=== PATIENT | male | born 1995 | race Hispanic/Latino ===

== ENCOUNTER 2018-05-30 18:40 | Inpatient (IN) | payer MEDICAID ==
[2018-05-30 19:23] VITALS: O2SAT 98
[2018-05-30 19:58] LABS: BASO # 0.1 K/uL (0.0-0.2); EOS # 0.3 K/uL (0.0-0.7); EOS % 2.8 % (0.0-4.0); HEMOGLOBIN 14.7 g/dL (12.0-18.0); LYMPH # 3.6 K/uL (1.0-4.3); LYMPH % 35.7 % (20.0-40.0); MEAN CELL VOLUME 85.7 fL (80.0-94.0); MEAN CORPUSCULAR HEMOGLOBIN 30.9 pg (27.0-31.0); MEAN CORPUSCULAR HGB CONC 36.1 g/dL (33.0-37.0); MEAN PLATELET VOLUME 7.8 fL (7.2-11.7); MONO # 0.9 K/uL (0.0-0.8); MONO % 8.8 % (0.0-10.0); NEUT # 5.3 K/uL (1.8-7.0); NEUT % 51.7 % (50.0-75.0); NRBC % 0.1 % (0.0-2.0); RBC 4.76 Mil/uL (4.40-5.90); RED CELL DISTRIBUTION WIDTH 13.1 % (11.5-14.5); WHITE BLOOD COUNT 10.2 K/uL (4.8-10.8)
[2018-05-30 20:04] LABS: URINE BILIRUBIN NEGATIVE (NEGATIVE); URINE BLOOD NEGATIVE (NEGATIVE); URINE CLARITY Clear (Clear); URINE COLOR Yellow (YELLOW); URINE GLUCOSE (UA) NORMAL (Normal); URINE LEUKOCYTE ESTERASE NEG Leu/uL (Negative); URINE PROTEIN NEGATIVE (NEGATIVE); URINE UROBILINOGEN NORMAL mg/dL (0.2-1.0)
--- NOTE | 2018-05-30 20:15 | C.PDOC ---
History Of Present Illness 23 year old male with PMHx of bipolar disorder and asthma presents to the ED requesting help because he tried to jump out of car today. Reports he is going through a lot with work and his girlfriend. Also states he tried to overdose with heroin to kill himself last week and was revived with Narcan. Denies any physical complaints. Denies HI. Time Seen by Provider: 05/30/18 19:25 Chief Complaint (Nursing): Psychiatric Evaluation History Per: Patient History/Exam Limitations: no limitations Onset/Duration Of Symptoms: Days Current Symptoms Are (Timing): Still Present Suicide/Self Injury Attempted (Context): Other (heroin injection) Modifying Factor(s): Narcotics (heroin) Associated Symptoms: Depression, Suicidal Thoughts, Suicidal Plan Past Medical History Reviewed: Historical Data, Nursing Documentation, Vital Signs Vital Signs: Last Vital Signs Temp 97.8 F 05/30/18 19:15 Pulse 77 05/30/18 19:15 Resp 20 05/30/18 19:15 BP 112/69 05/30/18 19:15 Pulse Ox 98 05/30/18 19:15 - Medical History PMH: Asthma, Bipolar Disorder Family History: States: No Known Family Hx - Social History Hx Alcohol Use: Yes Hx Substance Use: Yes (heroin) Review Of Systems Except As Marked, All Systems Reviewed And Found Negative. Psych: Positive for: Depression, Suicidal ideation Physical Exam - Physical Exam Additional Physical Exam Comments: Gen: VS reviewed, alert, well developed, well nourished, nontoxic, mild distress Eye: EOMI, PERRL Neck: no JVD, supple, no adenopathy CV: regular rate, regular rhythm, no rubs,no murmur, S1, S2 Pulm: no distress, clear to auscultation, no wheeze, no rhonchi, breath sounds equal, no rales Abd: soft, nontender, no guarding, no rebound, no rigidity Ext: no edema Skin: good color, no rash, no cyanosis Psych: responds appropriately to questions, normal affect Neuro: oriented x3, CN2-12 intact grossly, motor intact, sensation intact ED Course And Treatment - Laboratory Results Result Diagrams: 05/30/18 19:50 05/30/18 19:50 O2 Sat by Pulse Oximetry: 98 (RA) Pulse Ox Interpretation: Normal Medical Decision Making Medical Decision Making: patient accepted for admission for suicidal ideation, bipolar disorder, substance abuse to service of dr. elliott. Disposition - Disposition Disposition: HOSPITALIZED Disposition Time: 22:14 Condition: STABLE Forms: [facility] (Albanian) - Clinical Impression Clinical Impression: Bipolar disorder, Suicidal ideation, Substance abuse - Scribe Statement The provider has reviewed the documentation as recorded by the Scribe Carol Ramos All medical record entries made by the Scribe were at my direction and personally dictated by me. I have reviewed the chart and agree that the record accurately reflects my personal performance of the history, physical exam, medical decision making, and the department course for this patient. I have also personally directed, reviewed, and agree with the discharge instructions and disposition.
[2018-05-30 20:21] LABS: ALB/GLOB RATIO 1.5 (1.0-2.1); ALBUMIN 4.9 g/dL (3.5-5.0); ALT/SGPT 17 U/L (21-72); AST/SGOT 16 U/L (17-59); BLOOD UREA NITROGEN 12 mg/dL (9-20); GFR NON-AFRICAN AMERICAN > 60
[2018-05-30 20:21] LABS: BARBITURATES, UR NEGATIVE (NEGATIVE); BENZODIAZEPINES, UR NEGATIVE (NEGATIVE); PHENCYCLIDINE, UR NEGATIVE (NEGATIVE)
[2018-05-30 20:24] LABS: OPIATES, UR POSITIVE (NEGATIVE)
[2018-05-30] MEDS ORDERED: Potassium Chloride 20 mEq ER Tab PO STA (20:36)
[2018-05-30] MEDS ORDERED: Potassium Chloride 20 mEq/15 ml LIQ UD ONE (21:00)
[2018-05-30 21:02] LABS: ACETAMINOPHEN < 10.0 ug/mL (10.0-30.0); SALICYLATE < 1.0 mg/dL 1
[2018-05-30 21:10] LABS: BARBITURATES, UR NEGATIVE (NEGATIVE); BENZODIAZEPINES, UR NEGATIVE (NEGATIVE); PHENCYCLIDINE, UR NEGATIVE (NEGATIVE)
[2018-05-30 21:21] LABS: OPIATES, UR POSITIVE (NEGATIVE)
--- NOTE | 2018-05-30 23:54 | PCM.BM ---
<Juliano Hu - Last Filed: 05/30/18 23:51> Treatment Plan Problems - Problems identified on initial assessmt SUICIDAL IDEATION Date Initiated: 05/30/18 Time Initiated: 23:00 Assessment reference: NA Status: Active SUBSTANCE ABUSE Date Initiated: 05/30/18 Time Initiated: 23:00 Assessment reference: NA Status: Active Treatment assets and liabiliti Patient Assests: cooperative, self-reliant, ADL independent, negotiates basic needs Patient Liabilities: financial problems, substance abuse, medical problems - Milieu Protocol Maintain good personal hygiene: daily Encourage regular showers, daily Remind patient to perform daily oral care, daily Assist patient to perform ADL's Maintain personal safety: every shift Educate patient to report safety concerns to staff, every shift Monitor environment for contraband/sharps Medication safety: Monitor for expected outcome, potential side effects: every shift, Assess barriers to learning: every shift, Assess readiness for medication education: every shift <Morgan Pacheco - Last Filed: 05/31/18 13:29> - Diagnosis (1) Opioid use disorder, severe, dependence Status: Acute Interventions: 05/31/18 13:29 * Assess 7x/week regarding severity of withdrawal * Educate regarding risks, benefits, side effects and alternatives of medications * Use Motivational Interviewing for abstinence * Use CBT for relapse prevention * Medication management for withdrawal symptoms * Encourage medication assisted treatment * (2) Bipolar disorder Status: Acute Interventions: 05/31/18 13:29 * Assess/adjust medications daily and /or as needed * See patient on an individual basis 7x/week to assess level of manic behaviors and stability * Discuss risks, benefits, side effects and alternatives of medications * <Betzaida Coombs - Last Filed: 06/04/18 08:52> Family Contact Family involvement: Family/SO is involved Family contact: Patient declines to allow family contact at present - Goals for Treatment Patient goals for treatment: "I want to go to rehab at [facility]." Discharge/Continuing Care - Education Needs Education Needs: Patient Medication, Patient Coping Skills, Patient Placement options, Patient Community resources - Discharge Discharge Criteria: Tolerates medication w/o severe side effects, No longer exhibiting s/s of withdrawal Discharge to:: Substance Abuse Rehab - Treatment Team Participation Discussed with Family/SO: No Was Patient/Family/SO present at Treatment Team Meeting: Yes
--- NOTE | 2018-05-31 09:33 | RAD ---
Date of service: 05/30/2018 HISTORY: Medical screening COMPARISON: No prior. FINDINGS: LUNGS: No active pulmonary disease. PLEURA: No significant pleural effusion identified, no pneumothorax apparent. CARDIOVASCULAR: No aortic atherosclerotic calcification present. Normal cardiac size. No pulmonary vascular congestion. OSSEOUS STRUCTURES: No significant abnormalities. VISUALIZED UPPER ABDOMEN: Normal. OTHER FINDINGS: None. IMPRESSION: No active disease.
[2018-05-31] MEDS ORDERED: Aluminum Hydroxide/Magnesium Hydroxide Susp (30 mL) PO PRN (10:38)
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
[2018-05-31] MEDS: Divalproex 500 mg DR Tab PO SCH ×2 (11:26→17:07)
[2018-05-31] MEDS: Multiple Vitamins Tab PO SCH (11:28)
[2018-06-01] MEDS: Divalproex 500 mg DR Tab PO SCH ×2 (09:10→18:07)
[2018-06-01] MEDS: Multiple Vitamins Tab PO SCH (09:10)
[2018-06-01] MEDS ORDERED: Influenza Vaccine 60 MCG/0.5 ML SYR (3 yr & up) IM ONE (10:00)
[2018-06-01] MEDS ORDERED: Pneumococcal 23-Valent Vaccine IM ONE (10:30)
--- NOTE | 2018-06-01 12:10 | PCM.PYCHPN ---
Psychiatric Progress Note - Psychiatric Progress Note Patient seen today, length of contact: 15 min Patient Chief Complaint: "I am not well" Problems Identified/Issues Discussed: The pt is seen, chart reviewed, case discussed with staff. The pt is compliant with medications and reports no side-effects. Symptoms are improving but needs more time to stabilize. Pt attends groups and activities. Support given, psycho-education provided. After care discussed. Medication Change: Yes (meds adjusted) Medical Record Reviewed: Yes Mental Status Examination - Cognitive Function Orientation: Person, Place, Situation, Time Memory: Intact Attention: WNL Concentration: Poor Association: WNL Fund of Knowledge: WNL - Mood Mood: Depressed, Anxious - Affect Affect: Constricted - Speech Speech: Appropriate - Formal Thought Process Formal Thought Process: No Impairment - Suicidal Ideation Suicidal Ideation: No - Homicidal Ideation Homicidal Ideation: No Goal/Treatment Plan - Goal/Treatment Plan Need for Continued Stay: Discharge may exacerbated symptoms, Severe functional impairment Progress Toward Problem(s) and Goals/Treatment Plan: Depakote for bipolar disorder Remeron for depression and insomnia Taper with methadone Gabapentin for augmentation As needed medications All risks, benefits and alternatives of the meds discussed, and the pt agreed and understood. Attend groups and activities Supportive therapy and psychoeducation [place] for abstinence CBT for relapse prevention Encourage MAT Refer to rehab or IOP, and self-help groups Teach healthy lifestyle methods, i.e. diet, exercise, meditation Smoking cessation with [place] Nicotine patch if needed
[2018-06-02] MEDS: Divalproex 500 mg DR Tab PO SCH ×2 (09:50→17:01)
[2018-06-02] MEDS: Multiple Vitamins Tab PO SCH (09:50)
--- NOTE | 2018-06-02 13:18 | PCM.PYCHPN ---
Psychiatric Progress Note - Psychiatric Progress Note Patient seen today, length of contact: 15 min Patient Chief Complaint: "I am getting better" Problems Identified/Issues Discussed: The pt is seen, chart reviewed, case discussed with staff. The pt is compliant with medications and reports no side-effects. Symptoms are improving but needs more time to stabilize. Pt attends groups and activities. Support given, psycho-education provided. After care discussed. Medication Change: Yes (meds adjusted) Medical Record Reviewed: Yes Mental Status Examination - Cognitive Function Orientation: Person, Place, Situation, Time Memory: Intact Attention: WNL Concentration: Poor Association: WNL Fund of Knowledge: WNL - Mood Mood: Depressed, Anxious - Affect Affect: Constricted - Speech Speech: Appropriate - Formal Thought Process Formal Thought Process: No Impairment - Suicidal Ideation Suicidal Ideation: No - Homicidal Ideation Homicidal Ideation: No Goal/Treatment Plan - Goal/Treatment Plan Need for Continued Stay: Discharge may exacerbated symptoms, Severe functional impairment Progress Toward Problem(s) and Goals/Treatment Plan: Depakote for bipolar disorder Remeron for depression and insomnia Taper with methadone Gabapentin for augmentation As needed medications All risks, benefits and alternatives of the meds discussed, and the pt agreed and understood. Attend groups and activities Supportive therapy and psychoeducation [place] for abstinence CBT for relapse prevention Encourage MAT Refer to rehab or IOP, and self-help groups Teach healthy lifestyle methods, i.e. diet, exercise, meditation Smoking cessation with [place] Nicotine patch if needed
[2018-06-03] MEDS: Divalproex 500 mg DR Tab PO SCH ×2 (10:27→17:25)
[2018-06-03] MEDS: Multiple Vitamins Tab PO SCH (10:27)
[2018-06-04 06:42] VITALS: RESP 18; TEMP 97.4
[2018-06-04] MEDS: Divalproex 500 mg DR Tab PO SCH (09:43)
[2018-06-04] MEDS: Multiple Vitamins Tab PO SCH (09:43)
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
[2018-06-04 11:46] VITALS: BP 112/63; PULSE 90
== END 2018-06-04 10:55 | disposition home or self-care (01) | DRG 430 ==
LOC: C.ER 18:40 → C.5E 22:15
PROVIDERS: ADMIT Psychiatry & Neurology Psychiatry; ATTEND Psychiatry & Neurology Psychiatry
PROC: GZ3ZZZZ Medication Management (ICD-10-PCS; principal; 2018-05-30)
PROC: GZHZZZZ Group Psychotherapy (ICD-10-PCS; 2018-05-30)
PROC: GZ56ZZZ Individual Psychotherapy, Supportive (ICD-10-PCS; 2018-05-30)
DX: F31.4 Bipolar disorder, current episode depressed, severe, without psychotic features (principal); F11.23 Opioid dependence with withdrawal; F10.20 Alcohol dependence, uncomplicated; R45.851 Suicidal ideations; G47.00 Insomnia, unspecified; Z62.810 Personal history of physical and sexual abuse in childhood; J45.909 Unspecified asthma, uncomplicated; F17.210 Nicotine dependence, cigarettes, uncomplicated; Z81.8 Family history of other mental and behavioral disorders; Z91.14 Patient's other noncompliance with medication regimen

== ENCOUNTER 2018-06-04 21:02 | Emergency (ER) | payer MEDICAID ==
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
[2018-06-04 22:12] LABS: BASO # 0.1 K/uL (0.0-0.2); BASO % 0.5 % (0.0-2.0); EOS # 0.2 K/uL (0.0-0.7); EOS % 1.1 % (0.0-4.0); HEMOGLOBIN 13.9 g/dL (12.0-18.0); LYMPH # 2.8 K/uL (1.0-4.3); LYMPH % 18.2 % (20.0-40.0); MEAN CELL VOLUME 87.6 fL (80.0-94.0); MEAN CORPUSCULAR HEMOGLOBIN 30.2 pg (27.0-31.0); MEAN CORPUSCULAR HGB CONC 34.4 g/dL (33.0-37.0); MEAN PLATELET VOLUME 7.6 fL (7.2-11.7); MONO # 1.4 K/uL (0.0-0.8); MONO % 8.9 % (0.0-10.0); NEUT # 11.1 K/uL (1.8-7.0); NEUT % 71.3 % (50.0-75.0); RBC 4.6 Mil/uL (4.40-5.90); RED CELL DISTRIBUTION WIDTH 13.2 % (11.5-14.5)
[2018-06-04 22:13] LABS: WHITE BLOOD COUNT 15.5 K/uL (4.8-10.8)
[2018-06-04 22:30] LABS: ALB/GLOB RATIO 1.7 (1.0-2.1); ALBUMIN 4.9 g/dL (3.5-5.0); ALT/SGPT 54 U/L (21-72); AST/SGOT 46 U/L (17-59); BLOOD UREA NITROGEN 13 mg/dL (9-20); CALCIUM 9.5 mg/dl (8.6-10.4); GFR NON-AFRICAN AMERICAN > 60
[2018-06-04 22:39] LABS: SQUAMOUS EPITHIAL < 1 /hpf (0-5); URINE BACTERIA RARE (<OCC); URINE BILIRUBIN NEGATIVE (NEGATIVE); URINE BLOOD NEGATIVE (NEGATIVE); URINE CLARITY Clear (Clear); URINE COLOR Yellow (YELLOW); URINE GLUCOSE (UA) NORMAL (Normal); URINE LEUKOCYTE ESTERASE NEG Leu/uL (Negative); URINE PROTEIN NEGATIVE (NEGATIVE); URINE UROBILINOGEN NORMAL mg/dL (0.2-1.0)
[2018-06-04 22:55] LABS: BARBITURATES, UR NEGATIVE (NEGATIVE); PHENCYCLIDINE, UR NEGATIVE (NEGATIVE)
[2018-06-04 22:56] LABS: BENZODIAZEPINES, UR POSITIVE (NEGATIVE); OPIATES, UR POSITIVE (NEGATIVE)
[2018-06-05 00:21] VITALS: BP 131/80; PULSE 102; RESP 22; TEMP 98.7
[2018-06-05 00:23] VITALS: O2SAT 97
== END 2018-06-05 01:02 | disposition home or self-care (01) ==
LOC: SUPCPDRO 21:02 → C.ER 21:02
DX: F19.10 Other psychoactive substance abuse, uncomplicated (principal)